=== PATIENT | female | born 1955 | race Caucasian/White ===

== ENCOUNTER 2017-04-03 06:27 | Emergency (ER) | payer BC, OTHER ==
[2017-04-03] MEDS ORDERED: ACETAMINOPHEN 500 MG TABLET (FP) PO ONE (06:36)
[2017-04-03 06:37] VITALS: BP 123/68; PULSE 87; TEMP 97.6; BMI 29.9
--- NOTE | 2017-04-03 06:41 | PDOC ---
History of Present Illness - General Chief Complaint: Respiratory Stated Complaint: COUGHING X 4 DAYS Time Seen by Provider: 04/03/17 06:34 History Source: Patient Exam Limitations: No Limitations - History of Present Illness Initial Comments: 04/03/17 06:35 This is a 61-year-old female comes in complaining of cough and congestion 4 days. Patient denies any fevers or chills however said she has had some episodes of sweating. The patient says that she is been coughing up intermittently yellow phlegm but mostly clear. Patient is also complaining of A mild headache. Patient said is worse when she coughs. Patient said she's been having a hard time sleeping because of the coughing. She is also complaining of some nasal congestion. PAST MEDICAL HISTORY: High cholesterol PAST SURGICAL HISTORY: no significant history FAMILY HISTORY: no pertinant history SOCIAL HISTORY: Pt lives with family and is employed. MEDICATIONS: reviewed ALLERGIES: As per nursing notes Review of Systems General: No fevers or chills, no weakness, no weight loss HEENT: No change in vision. No sore throat,. No ear pain CardioVascular: No chest pain or shortness of breath Respiratory: + Out on to make sure is not complicated is complicated and she needs to actually is cough, or wheezing. Gastrointestinal: no nausea, vomitting, diarrhea or constipation, No rectal bleeding Genitourinary: No dysuria, hematuria, or frequency Musculoskeletal: No joint or muscle pain or swelling Neurologic: No headache, vertigo, dizziness or loss of consciousness Psychiatric: nor depression Skin: No rashes or easy bruising Endocrine: no increased thirst or abnormal weight change Allergic: no skin or latex allergy All other systems reviewed and normal Exam: General: Well-nourished well-developed individual, no acute distress HEENT: Throat: Normal, tonsils normal, no erythema or exudate Neck: Supple, no meningeal signs, no lymphadenopathy Eyes::Pupils equal reactive and round, extraocular motion intact Chest: Nontender to palpation Cardiac: S1-S2 normal, regular rate and rhythm, no murmurs rubs or gallops Respiratory: Lungs clear to auscultation bilateral Abdomen: Soft, nondistended, normal bowel sounds, nontender to palpation diffusely Extremities: Warm, dry, no cyanosis, clubbing, or edema Skin: No rashes Neuro: Alert and oriented x3, CN II - XII intact, nonfocal exam with normal strength, normal sensation, normal reflexes, normal gait, Psych: Normal mood and affect Medical decision making: This is a 61-year-old female with 4 days of cough now with some questionable fevers and yellow phlegm. Patient is otherwise healthy. Differential diagnosis includes viral etiology, bronchitis, pneumonia Patient looks clinically well her vitals are normal so will obtain a chest x- ray to rule out bronchitis or pneumonia 04/03/17 07:00 Care of patient transferred to at 7 AM [facility] including history, physical exam and ancillary studies. [facility] care for the patient and will complete the evaluation and treatment. Patient is aware of the plan. Pt is clinically unchanged and stable. Past History - Past Medical History Allergies/Adverse Reactions: Allergies Allergy/AdvReac Type Severity Reaction Status Date / Time No Known Allergies Allergy Verified 04/03/17 06:30 Home Medications: Ambulatory Orders Benzonatate [Tessalon Pearls -] 100 mg PO TID #21 capsule 04/03/17 *DC/Admit/Observation/Transfer Diagnosis at time of Disposition: Cough - Discharge Dispostion Condition at time of disposition: Stable - Prescriptions Prescriptions: Benzonatate [Tessalon Pearls -] 100 mg PO TID #21 capsule - Referrals - Patient Instructions - Post Discharge Activity
--- NOTE | 2017-04-03 07:46 | PDOC ---
History of Present Illness - General Chief Complaint: Respiratory Stated Complaint: COUGHING X 4 DAYS Time Seen by Provider: 04/03/17 06:34 History Source: Patient Past History - Past Medical History Allergies/Adverse Reactions: Allergies Allergy/AdvReac Type Severity Reaction Status Date / Time No Known Allergies Allergy Verified 04/03/17 06:30 Home Medications: Ambulatory Orders Azithromycin [Zithromax -] 250 mg PO UTDICT 7 Days #14 tablet 04/03/17 Benzonatate [Tessalon Pearls -] 100 mg PO TID #21 capsule 04/03/17 COPD: No Hypercholesterolemia: Yes - Suicide/Smoking/Psychosocial Hx Smoking History: Never smoked Have you smoked in the past 12 months: No Information on smoking cessation initiated: No Hx Alcohol Use: No Drug/Substance Use Hx: No Substance Use Type: None *Physical Exam - Vital Signs Last Vital Signs Temp Pulse Resp BP Pulse Ox 97.6 F 87 16 123/68 95 04/03/17 06:32 04/03/17 06:32 04/03/17 06:32 04/03/17 06:32 04/03/17 06:32 - Physical Exam General Appearance: Yes: Nourished, Appropriately Dressed, Mild Distress HEENT: positive: LORRIE Respiratory/Chest: positive: Other (Crackles left base) ED Treatment Course - Medications Given in the ED: ED Medications Discontinued Medications Generic Name Dose Route Start Last Admin Trade Name Divya PRN Reason Stop Dose Admin Acetaminophen 1,000 mg 04/03/17 06:36 04/03/17 06:40 Tylenol - PO 04/03/17 06:37 1,000 mg ONCE ONE Administration *DC/Admit/Observation/Transfer Diagnosis at time of Disposition: Cough, Lung infiltrate - Discharge Dispostion Disposition: HOME Condition at time of disposition: Stable Admit: No - Prescriptions Prescriptions: Azithromycin [Zithromax -] 250 mg PO UTDICT 7 Days #14 tablet Benzonatate [Tessalon Pearls -] 100 mg PO TID #21 capsule - Referrals - Patient Instructions Printed Discharge Instructions: DI for Acute Bronchitis - Post Discharge Activity Forms/Work/School Notes: Back to Work
[2017-04-03] MEDS ORDERED: AZITHROMYCIN 250 MG TABLET ONE (07:49)
[2017-04-03] MEDS ORDERED: AZITHROMYCIN 250 MG TABLET PO ONE (07:51)
== END 2017-04-03 07:58 | disposition home or self-care (01) ==
LOC: FER 06:27
DX: R05 Cough (principal); R91.8 Other nonspecific abnormal finding of lung field
CPT/HCPCS: 71046-TC-FY; 99281-25

== ENCOUNTER 2018-07-14 01:21 | Emergency (ER) | payer BC | END 2018-07-14 01:49 | disposition home or self-care (01) | LOC: FER 01:21 ==

== ENCOUNTER 2018-11-25 18:57 | Emergency (ER) | payer BC ==
[2018-11-25 19:00] VITALS: BP 124/70; PULSE 85; TEMP 98; BMI 29.0
[2018-11-25] MEDS ORDERED: CEPHALEXIN MONOHYDRATE 500 MG CAPSULE (UD) PO ONE (21:15)
[2018-11-25] MEDS ORDERED: CEPHALEXIN MONOHYDRATE 500 MG CAPSULE (UD) ONE (21:17)
--- NOTE | 2018-11-25 21:22 | PDOC ---
History of Present Illness - General Chief Complaint: Pain, Acute Stated Complaint: RIGHT TOE PAIN Time Seen by Provider: 11/25/18 19:23 - History of Present Illness Initial Comments: This 62-year-old woman with a history of hyperlipidemia but no other significant past medical history presents with few days of increasing swelling/ redness/pain in her right great toe. Of note, the patient had a pedicure several days ago. She states that she noted a small amount of serosanguineous drainage from the edge of the nail yesterday. No previous history of paronychia of the fingernails or toenails. No history of poor wound healing or previous cellulitis/abscess formation. She denies fever/chills or pain in any area except the right great toe. No known allergies Medications as noted below Denies smoking history; no history of daily alcohol use or other recreational drug use. Past History - Past Medical History Allergies/Adverse Reactions: Allergies Allergy/AdvReac Type Severity Reaction Status Date / Time No Known Allergies Allergy Verified 11/25/18 18:57 Home Medications: Ambulatory Orders Atorvastatin Ca [Lipitor] 10 mg PO HS 07/14/18 Cephalexin Monohydrate [Keflex -] 500 mg PO Q8H #20 capsule 11/25/18 COPD: No Hypercholesterolemia: Yes - Surgical History GI Surgery: Yes (Colon cyst removed) - Psycho Social/Smoking Cessation Hx Smoking History: Never smoked Have you smoked in the past 12 months: No Hx Alcohol Use: No Drug/Substance Use Hx: No Substance Use Type: None Review of Systems - Review of Systems Able to Perform ROS?: Yes Comments:: 12 point review of systems is negative except for what is noted in the history of present illness *Physical Exam - Vital Signs Last Vital Signs Temp Pulse Resp BP Pulse Ox 98.0 F 85 17 124/70 100 11/25/18 18:57 11/25/18 18:57 11/25/18 18:57 11/25/18 18:57 11/25/18 18:57 - Physical Exam Comments: GENERAL: Adult female, alert and oriented x3, no acute distress HEAD: Normal with no signs of trauma. EXTREMITIES: Right lower extremity-moderate erythema/tenderness without fluctuance or discharge of the periungual area right hallux No lymphangitic streaking; no pain with movement (passive or active) at MTP joint. No subungual hematoma or other abnormality of nail bed Extremity exam otherwise normal NEUROLOGICAL: Cranial nerves II through XII grossly intact. Normal speech. No focal neurological deficits. Discharge - Discharge Information Problems reviewed: Yes Clinical Impression/Diagnosis: Paronychia of great toe, right Condition: Stable Disposition: HOME - Additional Discharge Information Prescriptions: Cephalexin Monohydrate [Keflex -] 500 mg PO Q8H #20 capsule - Follow up/Referral Referrals: Erwin Amor DPM [Staff Physician] - 3 days - Patient Discharge Instructions Patient Printed Discharge Instructions: Paronychia Additional Instructions: warm soaks right foot (15 minutes each) at least 3-4 X a day for 5 days Keflex 500mg 3X a day for 1 week Elevate right foot as much as possible tylenol/motrin/aleve as needed for pain followup with truck body builder apprentice(Dr Amor) within 3-4 days return here if you have worsening pain/swelling/discharge - Post Discharge Activity
== END 2018-11-25 21:29 | disposition home or self-care (01) ==
LOC: FER 18:57
DX: L03.031 Cellulitis of right toe (principal); K92.9 Disease of digestive system, unspecified; E78.00 Pure hypercholesterolemia, unspecified
CPT/HCPCS: 99281-25